=== PATIENT | female | born 1960 | race Caucasian/White ===

== ENCOUNTER 2018-12-04 08:47 | Outpatient (CLI) | payer BC ==
--- NOTE | 2018-12-04 09:35 | RAD ---
XR Lumbar Spine Min 4 View HISTORY: Low back pain extending into both hips. COMPARISON: None. FINDINGS: The vertebral bodies maintain normal height minimal disc narrowing at L5-S1 no abnormal mot ion in flexion or extension views. No spondylolisthesis. Pedicles appear intact. IMPRESSION: Minimal degenerative disc narrowing at L5-S1. Atherosclerosis.
--- NOTE | 2018-12-04 10:01 | MRI ---
MRI Lumbar Spine WO Con HISTORY: Low back pain extending into both hips. COMPARISON: 01/13/2017 exam. FINDINGS: The vertebral bodies are normal in height. Some mild disc desiccation changes are seen at L 4-5 and L5-S1. Minimal disc narrowing seen at L5-S1. No significant periaortic adenopathy. The visualized portions of the kidneys appear unremarkable. T12-L1: Unremarkable. L1-2: Unremarkable. L2-3: Unremarkable. L3-4: Unremarkable. L4-5: Minimal disc bulge at this level no canal or foraminal stenosis L5-S1: There is a mild disc bulge at this level there is no significant canal stenosis there is mild left foraminal stenosis. IMPRESSION: Mild left-sided foraminal narrowing at L5-S1.
== END 2018-12-04 08:48 | disposition home or self-care (01) ==
LOC: TBSIIMAG 08:47
PROVIDERS: ATTEND Physician Assistant Surgical
DX: M54.16 Radiculopathy, lumbar region (principal); M51.37 Other intervertebral disc degeneration, lumbosacral region; M48.07 Spinal stenosis, lumbosacral region
CPT/HCPCS: 72110; 72148

== ENCOUNTER 2021-09-06 12:28 | Outpatient (CLI) | payer BC | END 2021-09-06 12:29 | disposition home or self-care (01) | LOC: TBSIIMAG 12:28 | PROVIDERS: ATTEND Surgery | DX: M54.50 Low back pain, unspecified (principal); R29.898 Other symptoms and signs involving the musculoskeletal system; M47.816 Spondylosis without myelopathy or radiculopathy, lumbar region; M53.87 Other specified dorsopathies, lumbosacral region | CPT/HCPCS: 72120; 72148 ==